=== PATIENT | female | born 1995 | race Caucasian/White ===

== ENCOUNTER → 2019-04-29 | Outpatient (CLI) | payer OTHER, SELFPAY ==
[2019-05-03 04:07] LABS: Clam <0.10 kU/L (Class 0); Codfish <0.10 kU/L (Class 0); Corn <0.10 kU/L (Class 0); Egg, White 0.14 kU/L (Class 0/I); Milk (Cow) 0.16 kU/L (Class 0/I); Peanut <0.10 kU/L (Class 0); SCALLOP <0.10 kU/L (Class 0); Shrimp <0.10 kU/L (Class 0); Soybean <0.10 kU/L (Class 0); Walnut, (Food) <0.10 kU/L (Class 0)
[2019-05-04 12:09] LABS: Immunoglobulin E 107 IU/mL (6-495)
[2019-05-04 14:01] LABS: SESAME SEED 0.11 kU/L (Class 0/I)
== END | disposition home or self-care (01) ==
LOC: LAB 11:42
PROVIDERS: Family Provider Family Medicine; PCP Family Medicine; Referring Provider Otolaryngology Otolaryngology/Facial Plastic Surgery; Visit Provider Otolaryngology Otolaryngology/Facial Plastic Surgery
DX: T78.40XA Allergy, unspecified, initial encounter (principal)
CPT/HCPCS: 36415; 82785; 86003

== ENCOUNTER 2019-09-02 05:56 | Day surgery (SDC) | payer OTHER, SELFPAY ==
--- NOTE | 2019-08-13 01:14 | HP_ITS ---
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 Is patient in pain?: No Allergies environmental Allergy (Mild, Uncoded 08/13/19 12:46) Sinus issues Medications NK 08/13/19 [History Confirmed 08/13/19] PFSH Surgical History (Updated 08/13/19 @ 12:41 by Rashmi Garcia) History of tonsillectomy (Acute) Family History (Updated 08/13/19 @ 12:41 by Rashmi Garcia) Mother Thyroid disorder Social History (Updated 08/13/19 @ 13:14 by Nica Patel MD) Smoking Status: Never smoker alcohol intake: current substance use type: does not use HPI HPI HPI: MICHELLE CHICAS, is a 24 F who presents to the office today for HPI HPI Surgical H&P: Yes HPI: MICHELLE CHICAS, is a 24 F who presents to the office today for for pilonidal sinus with abscess. Patient states she has had it for several years after having a tailbone injury. Patient states that she is noticed more this semester as it is been more painful as well as woozy with yellow purulent material. Currently she states it is now scabbed over, but is still sore. 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 ROS General General: No weight change, fatigue, colon cancer, breast cancer or weakness HEENT HEENT: No difficulty swallowing, eye injury, eye surgery, swollen glands or hoarseness Endo Endocrine: No thyroid disease, diabetes mellitus, thyroid cancer, Hair loss, heat intolerance or cold intolerance Skin Skin: No rash or changing moles Breast Breast: No left breast lump, right breast lump, nipple discharge, breast pain, abnormal mammogram, abnormal US or breast enlargement Musc Musculoskeletal: No back problems, arthritis, rheumatoid arthritis, gout or joint pain Cardio Cardiovascular: No murmur, pacemaker, heart disease, atrial fibrillation, high blood pressure, heart attack, heart stent, palpitations, shortness of breat with exertion or chest pain Psych Psychiatric: No depression, anxiety or hearing voices Resp Respiratory: No shortness of breath, No sleep apnea, No cough, No COPD, No asthma, No emphysema, No wheezing Gastro Gastrointestinal: No abdominal pain, No nausea or vomiting, No diarrhea, No constipation, No blood in stool, No acid reflux, No hemorrhoids, No ulcers, No gallbladder problem, No black,tarry stools Kunal Hematologic: No blood thinners, No blood disorders, No bleeding, No anemia, No blood clots Neuro Neurologic: No system reviewed and no additional complaints, except as docu, No as per HPI, No abnormal walking, No abnormal hearing, No abnormal movements, No abnormal speech, No behavioral changes, No burning sensations, No confusion, No seizure-like activity, No unsteadiness, No dizziness, No localized weakness, No frequent falls, No headache(s), No lack of coordination, No loss of vision, No memory loss, No numbness, No other visual disturbances, No radiating pain, No restless legs, No sensory deficit, No fainting, No tingling, No tremor(s), No weakness, No other Exam Const General: cooperative, comfortable, no acute distress Chest Breast Palpation: No nipple discharge Resp Effort & Inspection: normal respiratory effort Cardio Rate: regular rate Heart Sounds: no murmurs GI Inspection: non-distended Palpation: soft, no guarding, nontender Other: Superior gluteal cleft: 1 or 2 pilonidal pits present left-sided pilonidal sinus with purulent material expressed, no erythema surrounding, mildly tender to palpation, appears to be able to express all of the purulent material. Assessment & Plan Problems 1. Pilonidal sinus with abscess L05.02 Plan Currently appears all apparent details able to be expressed no erythema surrounding. Patient is interested in having it excised. Did talk to her about the procedure of excision of pilonidal cyst would plan initially closed including risk of bleeding, infection, need for further surgery and to leave it open due to recurrence, which would also involve more wound care. Patient was agreeable plan. Patient will let us know if she has any redness prior to surgery as he would not want to close the incision if it is obviously infected. Would plan to try to give her some antibiotics prior to surgery if needed. We will schedule for the week after her finals?September 02. Nica Patel M.D. Pager: [phone] [facility] [address] [place] [address], [address] [place] [address] Office: [phone] Plan Detail Follow Up Schedule surgery Coding Level of Care Code Off vis,new,level 3 Diagnoses Pilonidal sinus with abscess L05.02 08/13/19 1314 <Electronically signed by Nica Che am, MD> Date _ Nica Patel MD I have re-examined the patient. There are no clinical changes since date of exam.
[2019-08-13 12:42] VITALS: BMI 27.0
[2019-09-02 07:02] VITALS: BP 111/69; PULSE 88; RESP 16; TEMP 36.6; O2SAT 100; BMI 27.3
[2019-09-02 07:18] LABS: Internal QC Validated? YES +Cl - CLEAR BKGD; Pregnancy, Urine Negative Negative
[2019-09-02] MEDS: Lactated Ringers 1,000 ML 100 ML IV (07:18)
[2019-09-02] MEDS: Cefazolin 2 GM in 0.9% Normal Saline 100 ML IV (07:30)
--- NOTE | 2019-09-02 07:30 | PILCYST_PTH ---
PATIENT: MICHELLE CHICAS LOC: [facility] U#:[id number] AGE/SX: 24/F ROOM: RE09/02/[address]: Dr. Nica Patel MD : 1995 BED: DIS: 09/02/2019 SPEC #: [id number] RECD: 09/02/19 09:36 STATUS: ALIYA TYLER #: [id number] REINIER: 09/02/19 07:[address]: Nica Patel DEPT: SURGICAL PATHOLOGY RECD BY: Mando Guevara ENTERED: 09/02/19 11:15 SP TYPE: Pilonidal OTHR DR: Dr. Corby Barbosa, Tissues: PILONIDAL TISSUE Procedures: PAS Fungus (control) Special Stain Group I Surgery Specimen Level III AFB Stain (control) HEADER OPERATION: Excision pilonidal cyst PRE-OP DIAGNOSIS: Pilonidal sinus with abscess TISSUE SUBMITTED: Pilonidal sinus MICROSCOPIC DIAGNOSIS Pilonidal sinus cyst, excision: Consistent with pilonidal cyst with associated acute and chronic inflammation and abscess formation. Special stains for acid fast bacilli and fungi are negative for organisms; matched controls are appropriate. SJ:salvador 09/03/19 MICROSCOPIC DESCRIPTION Slides are reviewed. GROSS DESCRIPTION Received in fixative is one container labeled with the patient's name and designated pilonidal sinus. The specimen consists of a triangular-shaped pink-schultz skin with attached fibrofatty tissue measuring 2.8 x 2.2 and a depth of excision measuring 1.5 cm. The specimen is sectioned and totally submitted in two cassettes. / AM:salvador 09/02/19 TC:5 CPT: 78473, 46014 x2
[2019-09-02] MEDS: Bupivacaine Mpf 0.5% 30 ML VIAL (08:00)
--- NOTE | 2019-09-02 08:24 | OP.PCM_ITS ---
Report of Operation Date of Procedure: 09/02/19 Pre-Operative Diagnosis: Pilonidal cyst with sinus Post-Operative Diagnosis: Same Surgery/Procedure Performed:: Patient on pilonidal cyst and sinus materials inspector: Yu Maldonado Anesthesiologist: Kimo Francis Special Medications: Ancef 2 g IV x1 Specimen's removed: Pilonidal cyst and sinus Estimated Blood Loss (mL): < 10 cc Fluids Replaced: 700 cc Description of Procedure: The patient was brought into the operating room and general anesthesia was induced. She was placed in prone lithotomy position. A timeout was completed verifying correct patient, procedure, site, position, and special equipment prior to beginning the procedure. Superior gluteal cleft was prepared prepped and draped in standard sterile fashion with Betadine. The pilonidal sinus was injected with methylene blue. The pilonidal cyst and sinus off to the left were excised with a 15 blade scalpel deepened to the subcutaneous tissue with electrocautery to normal- appearing tissue. All the blue tissue was excised. Wound was irrigated. Subdermal sutures of 2-0 Vicryl were used to close the wound. The subdermal tissues of the gluteal cleft were also sutured to the deep tissue as well. The skin was closed with resolved sutures of 3-0 nylon. Local anesthesia of half percent Marcaine total of 10 cc. Pressure dressing of 4 x 4 gauze and an ABD was placed over the incision. Patient was extubated. Patient tolerated procedure well. - Complications none
--- NOTE | 2019-09-02 08:29 | PCM.DC.GS ---
Discharge Diet: No Restrictions Discharge Activity: May not drive while taking narcotic pain medications. May shower in (days): 1 Call your doctor if your incision/area has: Continuous Slow Oozing, Sudden Increased Bleeding, Increased Pain/ Swelling, Increased Redness, Foul Smelling Discharge, Swelling at the incision site Call your doctor if you observe: Fever of 101 or Higher Change Dressing in (Days):: 0 - Change dressing PRN if saturated, apply a new pressure dressing, keep pressure dressing for about 5 days. Then okay to just have regular dressing. Additional Instructions: Okay to take ibuprofen 400-600 mg PO q6hr PRN along with the Percocet. Avoid Tylenol since there is already Tylenol in the Percocet. Take all pain meds with food. Percocet can cause constipation recommend taking daily stool softener (i.e. Colace/docusate) while taking the pain meds. Recommend starting some MiraLAX in 1 to 2 days if no bowel movement. If still no bowel movement following day recommend taking magnesium citrate half the bottle and waiting 4-6 hours if still no results take the other half the bottle. Allergies/Adverse Reactions: Allergies environmental Allergy (Mild, Uncoded 09/02/19 07:02) Sinus issues Medications to take at Discharge Oxycodone HCl/Acetaminophen [Percocet 5/325] 1 - 2 tab PO Q6H PRN PRN 5 Days #25 tab 09/02/19 The following prescriptions were given: Oxycodone HCl/Acetaminophen [Percocet 5/325] 1 - 2 tab PO Q6H PRN PRN 5 Days #25 tab PRN Reason: Pain Transmission Status: Received by [facility] Primary Care Physician: Corby Barbosa DO [Primary Care Provider] - Test Results: Test results from this visit will be discussed in further detail at your follow-up appointment, if applicable. Please Follow Up With: Nica Patel MD - After 5:00 on the weekends call [phone] with any concerns When: Call the office for a follow-up appointment in 10 days for suture removal Proposed Discharge Date: 09/02/19
[2019-09-02 08:38] VITALS: BP 104/59; BP 111/69; PULSE 85; RESP 16; TEMP 36.5; O2SAT 95
[2019-09-02 08:45] VITALS: BP 111/69; BP 93/42; PULSE 69; RESP 16; O2SAT 99
[2019-09-02 08:58] VITALS: BP 111/69; BP 113/67; PULSE 70; RESP 16; TEMP 36.4; O2SAT 100
[2019-09-02 09:32] VITALS: BP 111/69; BP 115/55; PULSE 75; RESP 16; TEMP 36.1; O2SAT 98
== END 2019-09-02 10:08 | disposition home or self-care (01) ==
LOC: SDC 05:56 → AC 05:57
PROVIDERS: Anesthesiology; Family Provider Family Medicine; PCP Family Medicine; Referring Provider Surgery; Visit Provider Surgery
PROC: (CPT 11771; principal; 2019-09-02 07:15)
DX: L05.02 Pilonidal sinus with abscess (principal)
CPT/HCPCS: 11771; 81025; 88304; 88312; J7120; J2405; Q9968

== ENCOUNTER 2019-10-11 19:56 | Emergency (ER) | payer OTHER, SELFPAY ==
[2019-09-12 15:43] VITALS: BMI 27.3
[2019-10-11 19:57] VITALS: BP 145/91; PULSE 100; RESP 20; TEMP 36.6; O2SAT 100; BMI 26.2
--- NOTE | 2019-10-11 20:39 | ED.VISSUMM ---
- ER Visit Summary Date of Service: 10/11/19 Chief Complaint: Anxiety and depression History of Present Illness: The patient is a 24 F past medical history depression and anxiety and the last 2 years developed panic attacks. States she is a college she had a meltdown and just feels like she is somewhat overwhelmed. She does not want to hurt her self. States that the most she has ever done was because superficial lacerations on her arm with her fingernail. She is never been admitted. She sees a counseling center. She was just started on Lexapro yesterday. Physical Examination: Appearing 22-year-old female. Accompanied by her parents. Vital signs are stable afebrile. H EENT exam unremarkable. Neck nontender no lymphadenopathy. No thyromegaly. Lungs clear to auscultation bilaterally. Heart regular rhythm no murmur. Abdomen soft nontender normal bowel sounds no peritoneal signs. Extremities moves all 4. No trauma. Neurovascular intact. Neurologically awake alert no focal motor deficits. No smell of alcohol. No signs of toxidrome. Test Results: None Emergency Department Course and Treatment: Clinically I think the patient is extremely low risk of hurting herself. Family and her comfort with her being discharged home. She will be given 1 dose of Ativan here to get kind to help relax her and take the edge off her anxiety. I will also have our socially responsible investment adviser speak with the patient as long as she and I are both comfortable with her being discharged home patient will follow up with the counseling center this week. Treatment Plan: Ativan as needed #10 no refill. Patient's parents will have the prescription and distribute the medication to her as needed. Disposition: Discharge Impression: Acute depression and anxiety Panic attacks This note was generated with Yelllohation software. It may contain incorrect words, spelling, and punctuation that were not noted in review of the chart prior to signing ED Disposition - Plan for ED Patient: Referrals: Claudia Briggs, DAVID-C [Primary Care Provider] -
--- NOTE | 2019-10-11 20:42 | ED.DEP ---
ED Disposition - Plan for ED Patient: Disposition: Home or Assisted Living Instructions: Depression, Panic Attack Prescriptions: Lorazepam [Ativan] 1 mg PO DAILY PRN PRN #10 tab PRN Reason: Anxiety Prescription Printed Referrals: Claudia Briggs NP-C [Primary Care Provider] - As Needed Additional Instructions: Follow-up with your counselor at the counseling center this week. Ativan as needed if you are very anxious just to take the edge off. Do not drive or drink alcohol while using. Return if you are feeling worse or that you would harm yourself.
[2019-10-11] MEDS: LORazepam 1 MG Tablet PO (20:51)
--- NOTE | 2019-10-11 21:20 | CM.ED ---
SOCIAL WORK ASSESSMENT INFORMANT: DR. MEDINA REASON FOR REFERRAL: SUICIDAL THOUGHTS, DENIES PLAN CHIEF COMPLIANT: PATIENT PRESENTS TO EMERGENCY DEPARTMENT WITH PARENTS FOR SUICIDAL IDEATION. PATIENT REPORTS JUST STARTED LEXAPRO LAST EVENING. PATIENT WITH INCREASED ANXIETY AND SOCIAL STRESSORS. PATIENT WITH HX OF PANIC ATTACKS. MARITAL/SOCIAL HISTORY: SINGLE LIVING SITUATION: PATIENT REPORTS LIVES ON CAMPUS AT [facility]. 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 MENTAL HEALTH TREATMENT/HISTORY: PATIENT STATES LONG HISTORY OF ANXIETY AND DEPRESSION AND REPORTS WAS NOT TREATED UNTIL RECENTLY. PATIENT STATES PANIC ATTACKS STARTED AT AGE 13 AND INCREASED 2 YEARS AGO. PATIENT STATES IN 6TH GRADE USE TO SELF HARM BY SLIDING FINGER NAILS BACK AND FORTH ON INSIDE OF ARMS AND HAD SUICIDAL IDEATIONS AT THAT TIME. PATIENT REPORTS NO HISTORY OF PLAN OR ATTEMPT. PATIENT STATES FAMILY HISTORY OF MENTAL HEALTH. PATIENT WAS JUST PRESCRIBED LEXAPRO THAT SHE BEGAN TAKING LAST EVENING. 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 PATIENT REPORTS NAUSEA AND FEELING TRAPPED ARE TRIGGERS. PATIENT DENIES ANY HISTORY OF EMOTIONAL,PHYSICAL OR SEXUAL ABUSE. SUBSTANCE ABUSE HISTORY: PATIENT DENIES ANY SUBSTANCE ABUSE ISSUES. REPORTS OCCASIONAL ALCOHOL. MENTAL STATUS EXAM: ORIENTATION: PATIENT A&OX4 MEMORY: GOOD APPEARANCE/GENERAL BEHAVIOR: CLEAN/APPROPRIATE, CALM MOOD/AFFECT: DEPRESSED, ANXIOUS COMMUNICATION PATTERN: RESPONDS TO QUESTIONS, INITIATES CONVERSATION, ASKS QUESTIONS THOUGHT PROCESS: APPROPRIATE, FORWARD THINKING JUDGEMENT: GOOD RISK TO SELF/OTHERS: SUICIDAL: PATIENT REPORTS SUICIDAL IDEATION, DENIES PLAN OR INTENT. HOMICIDAL: PATIENT DENIES ANY HOMICIDAL IDEATION. ASSESSMENT: MET WITH PATIENT AND FAMILY IN ROOM. PATIENT GAVE PERMISSION FOR THIS WORKER TO SPEAK OPENLY WITH PARENT'S PRESENT. INTRODUCED THIS WORKER'S ROLE AND REASON FOR REFERRAL. PATIENT STATES MANY SOCIAL STRESSORS SURROUNDING SCHOOL AND HEALTH CAUSING INCREASED ANXIETY AND PANIC ATTACKS. PATIENT REPORTS FEELING OVERWHELMED. PATIENT STATES HISTORY OF ANXIETY AND DEPRESSION BEGINNING A CHILD AND WAS NOT TREATED. PATIENT STATES HAS BEEN ABLE TO SELF REGULATE WITH COUNSELING. PATIENT STATES ANXIETY HAS INCREASED AND WAS RECENTLY PRESCRIBED LEXAPRO, BEGAN TAKING LAST EVENING. DISCUSSED HEALTHY COPING SKILLS. PATIENT STATES DOES DEEP BREATHING EXERCISES AND TAKES WALKS. PATIENT DENIES ANY CURRENT SUICIDAL IDEATION. PATIENT STATES RECENT SURGERY OVER WINTER BREAK THAT SHE IS STILL RECOVERING FROM. PATIENT STATES ALSO HAD BLOOD WORK DONE RECENTLY FOR THYROID WHICH IS ALSO CAUSING ANXIETY. MUCH EDUCATION AND EMOTIONAL SUPPORT PROVIDED. PATIENT PLANS TO TAKE WEEK OFF SCHOOL TO ADJUST TO NEW MEDICATION AND STAY WITH PARENTS. COLLABORATION WITH DR. MEDINA. PATIENT DENIES ANY SUICIDAL OR HOMICIDAL IDEATIONS. PLAN FOR PATIENT TO RETURN HOME WITH PARENTS. THIS WORKER TO FOLLOW UP WITH PATIENT ON 10/13/19. PATIENT STATES WILL HAVE FOLLOW UP WITH SCHOOL COUNSELOR. INTERVENTIONS: SOCIAL WORK ASSESSMENT SAFETY PLAN HOME WITH PARENTS PATIENT PROVIDED WITH SCHOOL EXCUSE BY DR. MEDINA WILL FOLLOW UP WITH PATIENT ON SUNDAY RELEASE OF INFORMATION SIGNED BY PATIENT FOR THIS WORKER TO SEND ED ASSESSMENT TO VLADIMIR GARDNER WITH [facility]. PLAN: HOME WITH PARENTS Sathya CASTILLO MSW, ELECTROTYPER.
[2019-10-11 21:31] VITALS: PULSE 100; RESP 15; O2SAT 100
--- NOTE | 2019-10-13 12:15 | CM.ED ---
SOCIAL WORK FOLLOW UP CALL MADE TO PATIENT. PATIENT REPORTS DOING BETTER. PATIENT HAS FOLLOW UP APPOINTMENT WITH DR. GARDNER ON SUNDAY. RELEASE OF INFORMATION AND THIS WORKER'S ASSESSMENT TO BE FAXED TO DR. GARDNER OFFICE PER PATIENT'S REQUEST. Sathya CASTILLO MSW, FOLEY ARTIST.
== END 2019-10-11 21:32 | disposition home or self-care (01) ==
LOC: ED 21:00
PROVIDERS: Emergency Provider Emergency Medicine; PCP Nurse Practitioner Family; Referring Provider Nurse Practitioner Family
DX: F41.0 Panic disorder [episodic paroxysmal anxiety] (principal); F32.9 Major depressive disorder, single episode, unspecified; Z79.899 Other long term (current) drug therapy
CPT/HCPCS: 99284

== ENCOUNTER → 2019-12-01 10:33 | Outpatient (CLI) | payer OTHER, SELFPAY ==
[2019-11-10 08:28] VITALS: BMI 26.2
[2019-12-01 12:48] LABS: Absolute Lymphocyte Count 1.93 X10^3/uL (0.83-4.51); Absolute Neutrophil Count 3.4 X10^3/uL (2.0-7.7); Basophil# 0.05 X10^3/uL; Basophil% 0.8 % (0-1); Eosinophil# 0.14 X10^3/uL; Eosinophils% 2.3 % (0-5); Hematocrit 41.6 % (37-47); Hemoglobin 13.4 g/dL (12.0-15.0); Lymphocyte # 1.93 X10^3/ul (4.0); Lymphocyte % 31.1 % (19-41); Mean Corp Hgb Conc 32.2 g/dL (32-36); Mean Corpuscular Hgb 28.6 pg (27.0-32.0); Mean Corpuscular Volume 88.9 fL (81-99); Mean Platelet Vol. 10.9 fl (6.2-12.0); Monocyte# 0.71 X10^3/uL; Monocyte% 11.4 % (0-10); NRBC Flagged by Analyzer 0 % (0-5); Neutrophil # 3.37 X10^3/uL (2.7-7.7); Neutrophil % 54.2 % (47-70); Platelet Count 301 K/mm3 (150-450); RBC Distribution Width SD 41.7 fl (35.1-43.9); Red Blood Count 4.68 M/mm3 (4.2-5.4); White Blood Count 6.2 K/mm3 (4.4-11.0)
[2019-12-01 13:25] LABS: Erythrocyte Sedimentation Rate 4 mm/hr (0-20)
[2019-12-01 13:32] LABS: Color, Urine Yellow (Yellow); Glucose, Dipstick Normal (Normal); Ketone-Dipstick Negative (Negative); Leukocyte Esterase-Dipstick 25 /ul (Negative); Nitrite-Dipstick Negative (Negative); Occult Blood-Urine Negative /ul (Negative); Protein-Dipstick Negative (Negative); Specific Gravity, Urine 1.005 (1.002-1.030); Urine Bilirubin Dipstick Negative (Negative); Urine Clarity Clear (Clear); Urine Urobilinogen Normal (Normal)
[2019-12-01 16:37] LABS: ALB/GLOB Ratio 0.7 RATIO (0.9-2.4); AST(SGOT) 22 U/L (15-37); Alanine Aminotransfer ALT/SGPT 29 U/L (13-56); Albumin, Serum 3.3 g/dL (3.2-5.0); Alkaline Phosphatase 62 U/L (45-117); Anion Gap 5 (5-15); BUN 10 mg/dL (7-18); BUN/Creat Ratio 12.9 RATIO (10-20); CRP < 2.90 mg/L (0.0-3.0); Calcium,Total 8.9 mg/dL (8.5-10.1); Chloride 104 mmol/L (98-107); Creatinine, Serum 0.78 mg/dL (0.55-1.02); EST Glomerular Filtration Rate 98 mL/min (>60); Est Glom Filt Rate - Afr Amer 118 mL/min (>60); Globulin 4.5 g/dL (2.2-4.2); Glucose 63 mg/dL (74-106); Potassium 3.6 mmol/L (3.5-5.1); Protein, Total 7.8 g/dL (6.4-8.2); Sodium Level 138 mmol/L (136-145); Thyroid Stim Hormone (TSH) 4.83 uIU/mL (0.358-3.74)
== END ==
PROVIDERS: PCP Nurse Practitioner Family; Referring Provider Internal Medicine Rheumatology; Visit Provider Internal Medicine Rheumatology
DX: E06.3 Autoimmune thyroiditis (principal); F41.9 Anxiety disorder, unspecified; F32.9 Major depressive disorder, single episode, unspecified
CPT/HCPCS: 36415; 80053; 81002; 84439; 84443; 85025; 85652; 86140